=== PATIENT | male | born 1990 | race Two or more races ===

== ENCOUNTER 2021-11-20 00:03 | Emergency (ER) | payer OTHER ==
[~2021-11-20] VITALS: Ht 175.3 cm; Wt 86.2 kg
[2021-11-20] MEDS ORDERED: ONDANSETRON 4 MG/2 ML VIAL ONE (00:29)
[2021-11-20] MEDS ORDERED: IV NORMAL SALINE 1000 ML BAG IV ONE (00:30)
[2021-11-20] MEDS ORDERED: ONDANSETRON 4 MG/2 ML VIAL IV ONE (00:30)
--- NOTE | 2021-11-20 00:33 | NUR ---
pt bib RA accompanied by [id number], Serial # [id number]. per report pt was having an epdisode of N/V and became unconsious. pt was not speaking upon arrival. VSS
[2021-11-20 00:34] LABS: HEMATOCRIT 42.9 % (36.7-47.1); MEAN CORPUSCULAR HEMOGLOBIN 30.9 uug (23.8-33.4); MEAN CORPUSCULAR VOLUME 89.1 fL (73.0-96.2); PLATELET COUNT (AUTO) 319 K/uL (152-348)
[2021-11-20 00:37] LABS: CARBON DIOXIDE 25 mmol/L (21-32); CHLORIDE 107 mmol/L (98-107); CREATININE 1.2 mg/dL (0.6-1.3); GLUCOSE 107 mg/dL (74-106); POTASSIUM 3.9 mmol/L (3.5-5.1); UREA NITROGEN, BLOOD 9 mg/dL (7-18)
[2021-11-20 00:46] LABS: ALANINE AMINOTRANSFERASE 52 U/L (16-63); ALKALINE PHOSPHATASE 80 U/L (50-136); ASPARTATE AMINOTRANSFERASE 18 U/L (15-37); BILIRUBIN,DIRECT 0.1 mg/dL (0.0-0.2); BILIRUBIN,TOTAL 0.2 mg/dL (0.2-1.0); ETHANOL < 3 MG/DL (0-0); TOTAL PROTEIN, SERUM 7.2 g/dL (6.4-8.2)
--- NOTE | 2021-11-20 00:53 | NUR ---
in n out catheter inserted for urine per MD order.
[2021-11-20 00:58] LABS: *BILIRUBIN,URIN 1+ (NEGATIVE); *CLARITY,URINE CLEAR (CLEAR); *COLOR,URINE YELLOW (YELLOW); *KETONES,URINE NEGATIVE (NEGATIVE); *UROBILINOGEN,URINE 0.2 E.U./dl (NORMAL); LEUKOCYTE ESTERASE ,URINE NEGATIVE (NEGATIVE); NITRITE, URINE NEGATIVE (NEGATIVE); PH,URINE 5.5 (5.0-8.0); UGLUCOSE NEGATIVE (NEGATIVE)
[2021-11-20 01:07] LABS: *BLOOD, URINE TRACE (NEGATIVE)
[2021-11-20 01:09] LABS: BACTERIA,URINE NONE SEEN /HPF (NONE SEEN); MUCUS,URINE MANY /LPF (0-FEW); SQUAMOUS EPITHELIAL CELL,UR FEW /HPF (NONE SEEN)
[2021-11-20 01:12] LABS: *AMPHETAMINE, URINE POSITIVE (NEGATIVE); *CANNABINOID, URINE POSITIVE (NEGATIVE); *COCCAINE, URINE NEGATIVE (NEGATIVE); *OPIATE, URINE NEGATIVE (NEGATIVE); *PHENCYCLIDINE SCREEN,URINE NEGATIVE (NEGATIVE)
--- NOTE | 2021-11-20 02:39 | NUR ---
Patient discharged to [id number] in stable condition. Written and verbal after care instructions given. Patient verbalizes understanding of instructions. Stressed follow up or return to ER for worsening s/s.
[2021-11-20 02:40] VITALS: BP 129/90
== END 2021-11-20 02:41 ==
LOC: ER 00:08
DX: R11.0 Nausea (principal); R00.0 Tachycardia, unspecified
CPT/HCPCS: 36415; 80048; 80076; 80307; 80320; 81001; 82550; 84484; 85025; 93005; 96361; 96374; 99285; J2405; J7040; A4663; C1758; G0480